=== PATIENT | female | born 1980 | race Two or more races ===

== ENCOUNTER 2023-12-11 11:20 | Emergency (ER) | payer OTHER ==
[~2023-12-11] VITALS: Ht 167.6 cm; Wt 105.2 kg
[2023-12-11] MEDS ORDERED: XARELTO20 MG (11:33)
[2023-12-11] MEDS ORDERED: FAMOTIDINE40 MG (11:33)
[2023-12-11] MEDS ORDERED: ACETAMINOPHEN 500 MG GEL..CAP PO ONE (12:15)
[2023-12-11 12:26] LABS: HEMATOCRIT 38.8 % (36.0-45.00); HEMOGLOBIN 12.7 g/dL (12.0-15.00); MEAN CELL VOLUME 81.1 fL (80.00-100.00); MEAN CORPUSCULAR HEMOGLOBIN 26.6 pg (27.00-32.0); MEAN CORPUSCULAR HGB CONC 32.8 g/dl (32.0-36.0); PLATELET COUNT 305 K/uL (150-450); RED BLOOD COUNT 4.78 M/uL (4.00-6.00); RED CELL DISTRIBUTION WIDTH 14.4 % (11.5-14.5)
[2023-12-11 13:00] LABS: ANION GAP 10 (10.0-20.0); BLOOD UREA NITROGEN 8 mg/dL (7-18); BUN CREA RATIO 12 (7.0-25.0); CALCIUM 9.1 mg/dL (8.5-10.1); CARBON DIOXIDE 27 mEq/L (21-32); CHLORIDE 107 mmol/L (98-107); CREATININE SERUM 0.68 mg/dL (0.55-1.02); GFR 93.57; GLUCOSE FASTING 101 mg/dL (65-100); OSMOLALITY SERUM 278 MOSM/KG (275-295); POTASSIUM 3.84 mEq/L (3.5-5.1); SODIUM 140 mmol/L (136-145)
[2023-12-11 13:04] LABS: HCG QUANTITATIVE < 1 mUI/mL (1-3)
[2023-12-11 13:17] LABS: URINE APPEARANCE Turbid; URINE BILIRRUBIN Small (NEGATIVE); URINE BLOOD Large; URINE COLOR Dark Yellow; URINE GLUCOSE Negative (NEGATIVE); URINE LEUKOCYTE Small; URINE NITRATE Negative; URINE PROTEIN 30 (NEGATIVE)
[2023-12-11 13:21] LABS: URINE BACTERIA 2741.6 uL (0.0-1933); URINE EPITHELIAL CELLS 20.7 uL (0.0-38.8); URINE RBC 7923.6 uL (0.0-20.8); URINE WBC 43.4 uL (0.0-23.2)
== END 2023-12-11 14:12 | disposition home or self-care (01) ==
LOC: ER 11:20
PROVIDERS: General Practice
DX: N39.0 Urinary tract infection, site not specified (principal); Z86.711 Personal history of pulmonary embolism; N94.6 Dysmenorrhea, unspecified

== ENCOUNTER 2024-07-31 21:25 | Emergency (ER) | payer OTHER ==
[~2024-07-31] VITALS: Ht 167.6 cm; Wt 97.5 kg
[~2024-07-31 21:25] MED LIST: FAMOTIDINE40 MG; XARELTO20 MG
[2024-07-31] MEDS ORDERED: KETOROLAC TROMETHAMINE 30 MG VIAL IV ONE (21:45)
[2024-07-31] MEDS ORDERED: PROMETHAZINE HCL 25 MG/ML AMPUL IM ONE (22:00)
[2024-07-31] MEDS ORDERED: MEPERIDINE HCL/PF 50 MG/ML VIAL IM ONE (22:00)
[2024-07-31 23:12] LABS: HEMOGLOBIN 10.1 g/dL (12.0-15.00); MEAN CELL VOLUME 80.7 fL (80.00-100.00); MEAN CORPUSCULAR HEMOGLOBIN 26.4 pg (27.00-32.0); MEAN CORPUSCULAR HGB CONC 32.8 g/dl (32.0-36.0); PLATELET COUNT 333 K/uL (150-450); RED BLOOD COUNT 3.84 M/uL (4.00-6.00)
[2024-07-31 23:13] LABS: RED CELL DISTRIBUTION WIDTH 17.4 % (11.5-14.5)
[2024-07-31 23:37] LABS: BILIRUBIN TOTAL 0.33 mg/dL (0.3-1.2); CALCIUM 8.7 mg/dL (8.5-10.1); CREATININE SERUM 0.6 mg/dL (0.55-1.02); GFR 108.11; GLOBULINA 3.4 G/DL (2.4-3.5); TOTAL PROTEIN 6.4 gm/dL (6.4-8.2)
[2024-07-31 23:41] LABS: POTASSIUM 3.51 mEq/L (3.5-5.1)
== END 2024-08-01 01:39 | disposition home or self-care (01) ==
LOC: ER 21:25
PROVIDERS: General Practice
DX: R10.2 Pelvic and perineal pain (principal); D25.9 Leiomyoma of uterus, unspecified